=== PATIENT | male | born 1985 | race Caucasian/White ===

== ENCOUNTER 2024-05-24 22:08 | Emergency (ER) | payer OTHER, SELFPAY ==
[2024-05-24 22:19] VITALS: BP 142/89; PULSE 107; RESP 18; TEMP 37.2; O2SAT 99; BMI 19.3
--- NOTE | 2024-05-24 22:44 | PC.NURSE ---
Pt states some nausea at this time but does not want meds for it yet.
[2024-05-24 22:52] LABS: Add Manual Diff / Slide Review NO; Basophils Absolute Auto 0 /uL (0-100); Basophils Percent Auto 0.4 % (0-2); Eosinophils Absolute Auto 100 /uL (0-450); Eosinophils Percent Auto 1.1 % (2-4); Hematocrit 36.5 % (41-53); Hemoglobin 11.7 g/dL (13.5-17.5); Lymphocytes Absolute Auto 1700 /uL (1100-4500); Lymphocytes Percent Auto 14.1 % (25-40); Mean Corpuscular HGB Conc 32.1 % (30-36); Mean Corpuscular Hemoglobin 23.5 PG (26-34); Mean Corpuscular Volume 73.2 fL (80-100); Monocytes Absolute Auto 1500 /uL (0-900); Monocytes Percent Auto 12.9 % (3-14); Neutrophils Absolute Auto 8500 /uL (1500-7000); Neutrophils Percent Auto 71.5 % (50-75); Platelet Count 695 X10^3/uL (150-400); Red Blood Cell Count 4.99 X10^6/uL (4.5-5.9); Red Cell Distribution Width 17.3 % (11.6-14.8); White Blood Cell Count 11.8 X10^3/uL (4.5-11.0)
[2024-05-24 22:53] LABS: Alanine Aminotransferase 18 IU/L (<50); Albumin 3.7 g/dL (3.5-5.0); Alkaline Phosphatase 99 U/L (38-126); Aspartate Aminotransferase 25 IU/L (17-59); BUN Creatinine Ratio 11.6 (6-22); Bilirubin Total 0.6 mg/dL (0.2-1.3); Blood Urea Nitrogen 11 mg/dL (9-20); Calcium 9.2 mg/dL (8.4-10.2); Carbon Dioxide 24 mmol/L (22-32); Chloride 93 mmol/L (98-107); Estimated Glomerular Filt Rate > 60 mL/min (>60); Glucose 137 mg/dL (70-100); HEMOLYSIS < 15 (0-50); Lipase 40 U/L (23-300); Potassium 3.1 mmol/L (3.4-5.1); Sodium 130 mmol/L (137-145)
[2024-05-24 22:54] LABS: Albumin Globulin Ratio 0.8 (1.0-2.8); Globulin 4.4 g/dL (1.7-4.1); Total Protein 8.1 g/dL (6.3-8.2)
--- NOTE | 2024-05-24 23:04 | DI.CT.S_ITS ---
PROCEDURE: CT ABDOMEN PELVIS W CON INDICATIONS: abd pain, hx of crohns TECHNIQUE: After the administration of intravenous contrast, axial sections acquired from the lung bases to the pubic symphysis. Coronal and sagittal reformats were performed. For radiation dose reduction, the following was used: automated exposure control, adjustment of mA and/or kV according to patient size. COMPARISON: None. FINDINGS: Image quality: Diagnostic. Lower Chest: No significant findings. ABDOMEN: Liver: No solid mass. Subcentimeter hypoattenuating lesion in the right hepatic lobe is too small to characterize, but is likely a cyst. Gallbladder: No radiopaque gallstones or wall thickening. Biliary ducts: No biliary dilation. Pancreas: No ductal dilation. Spleen: Size is within normal limits. Adrenal Glands: No adrenal nodules. Kidneys and Ureters: No hydronephrosis. No solid mass. No complex renal cystic lesion which requires follow up. Stomach and Bowel: Marked bowel wall thickening in the transverse colon with pericolonic fat stranding. Less prominent bowel wall thickening is seen throughout the remainder of the colon. No signs of bowel perforation. No definite small bowel inflammatory changes. No signs of small bowel obstruction. Peritoneum: No abnormal intraperitoneal fluid. No free air. Ventral Wall: No significant ventral hernia. Abdominal Nodes: No retroperitoneal or mesenteric adenopathy by size criteria. Vessels: Aorta and inferior vena cava are normal in size. PELVIS: Pelvic Organs: Unremarkable. Bladder: No bladder wall thickening, accounting for underdistention. Pelvic Nodes: No enlarged lymph nodes. Miscellaneous: No inguinal hernias are seen. Bones: No aggressive osseous abnormality. Sacroiliac joints are intact. IMPRESSION: Severe bowel wall thickening in the transverse colon with surrounding fat stranding is suspicious for colitis. There is [id number] bowel wall thickening throughout the remainder of the colon and rectum. Approved by: Lamonte Medina M.D. on 05/25/2024 at 0:01
[2024-05-24] MEDS: ONDANSETRON 4 MG/2 ML INJ IV (23:10)
[2024-05-24] MEDS: KETOROLAC 30 MG/ML VIAL 15 MG IV (23:10)
[2024-05-24] MEDS: SODIUM CHLORIDE 0.9% 1,000 ML 1000 ML IV (23:10)
--- NOTE | 2024-05-24 23:16 | PC.NURSE ---
Pt taken to imaging via ED stretcher with system technologist
[2024-05-24 23:46] LABS: Lactate (Lactic Acid) 1.8 mmol/L (0.7-2.1); Magnesium 1.9 mg/dL (1.6-2.3)
[2024-05-25] VITALS (7 sets, daily range): BP systolic 99–114; BP diastolic 70–81; PULSE 78–98; RESP 18; O2SAT 95–99
--- NOTE | 2024-05-25 00:16 | ED.ABDPAIN ---
HPI - Abdominal Pain General Chief Complaint: Abdominal Pain Stated Complaint: Chron's flare-up Time Seen by Provider: 05/24/24 23:04 Source: patient Mode of arrival: Ambulatory History of Present Illness HPI narrative: 39-year-old male with a past medical history of Crohn's comes into the ED from home for evaluation of cramping abdominal pain diarrhea ongoing persistent for the past 3-4 weeks. States that he has not had a Crohn's flare-up in a proximally 5 years states his GI doctor was informed by the [place], states his symptoms are similar to when he has a history of GI flare-up, not currently on any medications for this. Denies any other symptoms such as headache visual disturbances chest pain shortness of breath fever chills or any other GI/ symptoms time. He denies any recent antibiotics denies any recent travel denies any known sick contacts Related Data Previous Rx's Medication Instructions Recorded prednisone 20 mg tablet 40 mg (2 x 20 mg) PO DAILY 2 weeks 05/25/24 #28 tabs Allergies Allergy/AdvReac Type Severity Reaction Status Date / Time No Known Drug Allergies Allergy Verified 05/24/24 22:21 Review of Systems Review of Systems Narrative: General: Denies fever, chills, weight loss HEENT: Denies headache, eye drainage, eye irritation, head trauma, sore throat, voice change Cardiovascular: Denies any chest pain, palpitations, shortness of breath, tachycardia Respiratory: Denies any shortness of breath, cough, wheeze, stridor GI/: Positive abdominal pain, bright red blood per rectum,denies nausea, vomiting, diarrhea, melanotic stools, urinary frequency, urinary retention, dysuria, hematuria MSK: Denies any joint pain, muscle pains, swelling Skin: Denies any rashes, lesions, discoloration Neuro: Denies any headache, lightheadedness, dizziness, fainting, weakness Psych: Denies SI/HI Patient History Social History Smoking Status: Current every day smoker Smoking Status: Current every day smoker Exam Narrative Exam Narrative: General: Cooperative, comfortable, well-developed, not in acute distress HEENT: Normocephalic, atraumatic, PERRLA, normal sclera, eyelids normal, Neck: Active full range of motion, atraumatic Chest: Normal to inspection, negative crepitus, no overlying erythema ecchymosis Respiratory: Normal respiratory effort, not in acute respiratory distress, clear to auscultation bilaterally negative cough, wheeze, tachypnea, rhonchi, rales Cardiology: Regular rate rhythm negative gallop, murmur, rubs GI/: Normal to inspection, soft, nonrigid, no tenderness to palpation, exam deferred MSK: Full range of active range of motion of all 4 extremities, atraumatic Skin: No rashes lesions noted Neuro: Alert awake oriented x3, moves all 4 extremities spontaneously, cranial nerves intact, able to answer all questions appropriately follows commands appropriately Psych: Cooperative, negative suicidal or homicidal ideations Initial Vital Signs Initial Vital Signs: Vital Signs Temperature 98.9 F 05/24/24 22:19 Pulse Rate 107 H 05/24/24 22:19 Respiratory Rate 18 05/24/24 22:19 Blood Pressure 142/89 H 05/24/24 22:19 Pulse Oximetry 99 05/24/24 22:19 Oxygen Delivery Method Room Air 05/24/24 22:19 Course Orders Ordered: ED Orders 05/24/24 22:23 Complete Blood Count AUTO DIFF Stat Comprehensive Metabolic Panel Stat Lactate (Lactic Acid) Stat Lipase Stat MAG [Magnesium] Stat 05/24/24 23:04 CT abdomen pelvis w con Stat 05/25/24 00:45 GI Panel (Film Array) Stat Ondansetron HCl (Ondansetron 4 Mg/2 Ml Inj) 4 mg IV NOW PRN PRN Reason: Nausea And Vomiting Last Admin: 05/24/24 23:10 Dose: 4 mg Documented By: GAYLE Ondansetron HCl (Ondansetron 4 Mg Odt) 4 mg PO NOW PRN PRN Reason: Nausea And Vomiting Discontinued Medications Sodium Chloride (Normal Saline 0.9%) 1,000 mls @ 1,000 mls/hr IV BOLUS ONE Stop: 05/25/24 00:03 Last Infusion: 05/25/24 00:16 Dose: Infused Documented By: Admin: 05/24/24 23:10 Dose: 1,000 mls/hr Documented By: GAYLE Ketorolac Tromethamine (Ketorolac 30 Mg/Ml Vial) 15 mg IV NOW ONE Stop: 05/24/24 23:05 Last Admin: 05/24/24 23:10 Dose: 15 mg Documented By: GAYLE Morphine Sulfate (Morphine 4 Mg/Ml Inj) 4 mg IV NOW ONE Stop: 05/25/24 00:31 Last Admin: 05/25/24 00:49 Dose: 4 mg Documented By: GAYLE Ondansetron HCl (Ondansetron 4 Mg/2 Ml Inj) 4 mg IV NOW ONE Stop: 05/25/24 00:31 Last Admin: 05/25/24 00:49 Dose: 4 mg Documented By: GAYLE Prednisone (Prednisone 20 Mg Tablet) 40 mg PO NOW ONE Stop: 05/25/24 02:37 Vital Signs Vital signs: Vital Signs - 8 hr 05/24/24 22:19 05/25/24 00:18 05/25/24 00:30 Temperature 98.9 F Pulse Rate 107 H 91 H 98 H Respiratory Rate 18 Blood Pressure 142/89 H Pulse Oximetry 99 99 99 Oxygen Delivery Method Room Air 05/25/24 00:30 05/25/24 00:52 05/25/24 00:52 Temperature Pulse Rate 91 H Respiratory Rate 18 Blood Pressure 112/81 105/77 Pulse Oximetry 98 Oxygen Delivery Method Room Air MDM - Abdominal Pain Differential Diagnosis Differential diagnosis: Likely abdominal pain, diverticulitis, small bowel obstruction and other (Crohn's flare-up, C diff) Lab Data 05/24/24 22:23 05/24/24 22:23 Labs: Lab Results 05/24/24 05/25/24 Range/Units 22:23 00:45 WBC 11.8 H (4.5-11.0) X10^3/uL RBC 4.99 (4.5-5.9) X10^6/uL Hgb 11.7 L (13.5-17.5) g/dL Hct 36.5 L (41-53) % MCV 73.2 L (80-100) fL MCH 23.5 L (26-34) PG MCHC 32.1 (30-36) % RDW 17.3 H (11.6-14.8) % Plt Count 695 H (150-400) X10^3/uL Neut % (Auto) 71.5 (50-75) % Lymph % (Auto) 14.1 L (25-40) % Leon % (Auto) 12.9 (3-14) % Eos % (Auto) 1.1 L (2-4) % Baso % (Auto) 0.4 (0-2) % Neut # (Auto) 8500 H (6599-3566) /uL Lymph # (Auto) 1700 (7567-1138) /uL Leon # (Auto) 1500 H (0-900) /uL Eos # (Auto) 100 (0-450) /uL Baso # (Auto) 0 (0-100) /uL Sodium 130 L (137-145) mmol/L Potassium 3.1 L (3.4-5.1) mmol/L Chloride 93 L (98-107) mmol/L Carbon Dioxide 24 (22-32) mmol/L BUN 11 (9-20) mg/dL Creatinine 0.95 (0.66-1.25) mg/dL Estimated GFR > 60 (>60) mL/min BUN/Creatinine Ratio 11.6 (6-22) Glucose 137 H (70-100) mg/dL Lactate 1.8 (0.7-2.1) mmol/L Calcium 9.2 (8.4-10.2) mg/dL Magnesium 1.9 (1.6-2.3) mg/dL Total Bilirubin 0.6 (0.2-1.3) mg/dL AST 25 (17-59) IU/L ALT 18 (<50) IU/L Alkaline Phosphatase 99 (38-126) U/L Total Protein 8.1 (6.3-8.2) g/dL Albumin 3.7 (3.5-5.0) g/dL Globulin 4.4 H (1.7-4.1) g/dL Albumin/Globulin Ratio 0.8 L (1.0-2.8) Lipase 40 (23-300) U/L Stl C. cayetanensis PCR Not detected (Not Detect) Stool Rotavirus (PCR) Not detected (Not Detect) Stool Adenovirus (PCR) Not detected (Not Detect) Stool Astrovirus (PCR) Not detected (Not Detect) Stool Cryptosporidium PCR Not detected (Not Detect) Stl E.coli Shiga Tox PCR Not detected (Not Detect) St Sh/Enteroin Ecoli PCR Not detected (Not Detect) Stl Enterotoxigenic E PCR Not detected (Not Detect) Stool EPEC (PCR) Detected (Not Detect) Stl E. histolytica PCR Not detected (Not Detect) Stool Giardia Lamblia PCR Not detected (Not Detect) Stool Sapovirus (PCR) Not detected (Not Detect) Stl P. shigelloides PCR Not detected (Not Detect) St Y.enterocolitica PCR Not detected (Not Detect) Stool Vibrio (PCR) Not detected (Not Detect) Stl Vibrio cholerae PCR Not detected (Not Detect) Stl Enteroaggr Ecoli PCR Not detected (Not Detect) Stl Norovirus GI/GII PCR Not detected (Not Detect) Campylobacter (PCR) Not detected (Not Detect) C. difficile Tox (PCR) Not detected (Not Detect) Salmonella (PCR) Not detected (Not Detect) Point of care testing: Urine Dip Bedside Urine Glucose Negative Bedside Urine Bilirubin + 1 Bedside Urine Ketone - Negative Urine Specific [place] 1.020 Bedside Urine Occult Blood - Negative Bedside Urine pH 6.0 Bedside Urine Protein +/- 15 Bedside Urine Urobilinogen - Negative Bedside Urine Nitrite - Negative Bedside Urine Leukocytes - Negative Esterase Imaging Data CT scan - abdomen/pelvis: Radiologist's Impression: [address] [address] [address] Scan Report Signed Patient: Josemanuel Levine MR#: [id number] : 1985 Acct:[id number] Age/Sex: 39 / M Date of Service: 05/24/24 Loc: ED Accession Number: [id number] Procedure: CT abdomen pelvis w con Ordering Provider: Medhat Cantu D.O. PROCEDURE: CT ABDOMEN PELVIS W CON INDICATIONS: abd pain, hx of crohns TECHNIQUE: After the administration of intravenous contrast, axial sections acquired from the lung bases to the pubic symphysis. Coronal and sagittal reformats were performed. For radiation dose reduction, the following was used: automated exposure control, adjustment of mA and/or kV according to patient size. COMPARISON: None. FINDINGS: Image quality: Diagnostic. Lower Chest: No significant findings. ABDOMEN: Liver: No solid mass. Subcentimeter hypoattenuating lesion in the right hepatic lobe is too small to characterize, but is likely a cyst. Gallbladder: No radiopaque gallstones or wall thickening. Biliary ducts: No biliary dilation. Pancreas: No ductal dilation. Spleen: Size is within normal limits. Adrenal Glands: No adrenal nodules. Kidneys and Ureters: No hydronephrosis. No solid mass. No complex renal cystic lesion which requires follow up. Stomach and Bowel: Marked bowel wall thickening in the transverse colon with pericolonic fat stranding. Less prominent bowel wall thickening is seen throughout the remainder of the colon. No signs of bowel perforation. No definite small bowel inflammatory changes. No signs of small bowel obstruction. Peritoneum: No abnormal intraperitoneal fluid. No free air. Ventral Wall: No significant ventral hernia. Abdominal Nodes: No retroperitoneal or mesenteric adenopathy by size criteria. Vessels: Aorta and inferior vena cava are normal in size. PELVIS: Pelvic Organs: Unremarkable. Bladder: No bladder wall thickening, accounting for underdistention. Pelvic Nodes: No enlarged lymph nodes. Miscellaneous: No inguinal hernias are seen. Bones: No aggressive osseous abnormality. Sacroiliac joints are intact. IMPRESSION: Severe bowel wall thickening in the transverse colon with surrounding fat stranding is suspicious for colitis. There is [id number] bowel wall thickening throughout the remainder of the colon and rectum. MDM Narrative Medical decision making narrative: 39-year-old male with a history of Crohn's comes in for Crohn's flare-up consistent of abdominal cramping intermittent nausea and intermittent bloody diarrhea. No recent antibiotic use states last GI doctor was 5 years ago in [place] has moved up here recently. Patient with mild leukocytosis of 11.8, potassium 3.1, remainder lab work unremarkable, CT scan showing diffuse colitis no abscess or fistula. GI panel only showing positive enteropathogenic E coli no C diff therefore patient will be sent home 1st dose of prednisone as well as a prescription for daily 40 mg prednisone and follow up with GI. He was given strict return precautions verbalized understanding of this and agrees to being discharged home with outpatient follow up 0029: Discussed case with medical genetics director Dr. Boswell, who recommends patient to have stool studies to rule out C diff, if this is negative he would recommend 40 mg prednisone daily until he is able to follow up in clinic 0235: Patient was informed of his GI panel results, informed he will be started on prednisone should be taking this daily until he follows up a GI doctor. He was also instructed follow up with primary care in outpatient setting he verbalized understanding of this and agrees to being discharged home with outpatient follow up Discharge Plan Departure Patient Disposition: Home Clinical Impression: Crohn's colitis Instructions: DI for Crohns Disease Flare Activity Restrictions/Additional Instructions: Please follow up with GI for your Crohn's disease as well as primary care Please read the discharge instructions sheet carefully and bring all papers to all doctor follow-up visits, as it may contain information that your doctor may want to see. Disease processes change and evolve, if your symptoms worsen or if you develop any new symptoms that are concerning to you please return for evaluation. Your evaluation today does not show any evidence of any life-threatening/serious illnesses requiring admission to the hospital or surgery. Please follow-up with your doctor for re-evaluation in approximately 1 day. Seek immediate medical attention for any worrisome symptoms. *If you do not have a primary care provider please contact the [facility] Resource line at [phone]. They will ask some questions about your medical history and help get you set up with a doctor in the community. Prescriptions: New prednisone 20 mg tablet 40 mg PO DAILY 14 Days Qty: 28 0RF Referrals: Sabina Boswell MD [Non-Staff] - 3-5 days Stand Alone Forms: Patient Portal/API/Survey
[2024-05-25] MEDS: ONDANSETRON 4 MG/2 ML INJ IV (00:49)
[2024-05-25] MEDS: MORPHINE 4 MG/ML INJ IV (00:49)
[2024-05-25 02:09] LABS: Adenovirus F 40/41 Not Detected (Not Detect); Astrovirus Not Detected (Not Detect); Campylobacter Not Detected (Not Detect); Clostridium difficile toxin AB Not Detected (Not Detect); Cryptosporidium Not Detected (Not Detect); Cyclospora cayetanensis Not Detected (Not Detect); Entamoeba histolytica Not Detected (Not Detect); Enteroaggregative E.coli Not Detected (Not Detect); Enteropathogenic E.coli Detected (Not Detect); Enterotoxigenic E.coli It/st Not Detected (Not Detect); Giardia lamblia Not Detected (Not Detect); Norovirus GI/GII Not Detected (Not Detect); Plesiomonsa shigelloides Not Detected (Not Detect); Rotavirus A Not Detected (Not Detect); Salmonella Not Detected (Not Detect); Sapovirus Not Detected (Not Detect); Shiga-like toxin-prod E.coli Not Detected (Not Detect); Shigella/Enteroinvasive E.coli Not Detected (Not Detect); Vibrio Not Detected (Not Detect); Vibrio cholerae Not Detected (Not Detect); Yersinia enterocolitica Not Detected (Not Detect)
[2024-05-25] MEDS: predniSONE 20 MG TABLET 40 MG PO (02:40)
== END 2024-05-25 02:46 | disposition home or self-care (01) ==
PROVIDERS: Emergency Provider Student in an Organized Health Care Education/Training Program
DX: K50.10 Crohn's disease of large intestine without complications (principal)
CPT/HCPCS: 36415; 74177; 80053; 81003; 83605; 83690; 83735; 85025; 87507; 96361; 96374; 96375; 96376; 99284; 99285; J1885; J2270; J2405; Q9967

== ENCOUNTER 2024-08-30 16:50 | Emergency (ER) | payer OTHER, SELFPAY ==
[2024-08-30] VITALS (12 sets, daily range): BP systolic 111–117; BP diastolic 76–81; PULSE 83–113; RESP 13–30; TEMP 36.5; O2SAT 77–99; BMI 17.2
--- NOTE | 2024-08-30 17:15 | EKG_ITS ---
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
--- NOTE | 2024-08-30 17:35 | EKG_ITS ---
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
[2024-08-30 17:52] LABS: Add Manual Diff / Slide Review NO; Basophils Absolute Auto 0 /uL (0-100); Basophils Percent Auto 0.8 % (0-2); Eosinophils Absolute Auto 0 /uL (0-450); Eosinophils Percent Auto 0.4 % (2-4); Hematocrit 31.2 % (41-53); Hemoglobin 10.1 g/dL (13.5-17.5); Lymphocytes Absolute Auto 1100 /uL (1100-4500); Lymphocytes Percent Auto 18.2 % (25-40); Mean Corpuscular HGB Conc 32.3 % (30-36); Mean Corpuscular Hemoglobin 23.6 PG (26-34); Mean Corpuscular Volume 73.1 fL (80-100); Monocytes Absolute Auto 600 /uL (0-900); Monocytes Percent Auto 10.3 % (3-14); Neutrophils Absolute Auto 4200 /uL (1500-7000); Neutrophils Percent Auto 70.3 % (50-75); Platelet Count 735 X10^3/uL (150-400); Red Blood Cell Count 4.27 X10^6/uL (4.5-5.9); Red Cell Distribution Width 19.8 % (11.6-14.8); White Blood Cell Count 5.9 X10^3/uL (4.5-11.0)
[2024-08-30 17:53] LABS: Alanine Aminotransferase 14 IU/L (<50); Albumin 2.8 g/dL (3.5-5.0); Albumin Globulin Ratio 0.6 (1.0-2.8); Alkaline Phosphatase 169 U/L (38-126); Aspartate Aminotransferase 23 IU/L (17-59); BUN Creatinine Ratio 15.9 (6-22); Bilirubin Total 0.8 mg/dL (0.2-1.3); Blood Urea Nitrogen 11 mg/dL (9-20); Calcium 8.1 mg/dL (8.4-10.2); Carbon Dioxide 32 mmol/L (22-32); Chloride 92 mmol/L (98-107); Estimated Glomerular Filt Rate > 60 mL/min (>60); Globulin 4.4 g/dL (1.7-4.1); Glucose 105 mg/dL (70-99); HEMOLYSIS < 15 (0-50); Lipase 63 U/L (23-300); Sodium 130 mmol/L (137-145); Total Protein 7.2 g/dL (6.3-8.2)
[2024-08-30 17:59] LABS: Potassium 2.3 mmol/L (3.4-5.1)
--- NOTE | 2024-08-30 18:07 | ED_ITS ---
HPI - Abdominal Pain General Chief Complaint: Abdominal Pain Stated Complaint: Chrones flare up Time Seen by Provider: 08/30/24 18:07 History of Present Illness HPI narrative: 39-year-old gentleman history of Crohn's disease not currently on any medication regimen presents with diffuse abdominal pain for 5-6 days along with nausea but has baseline liquid stools daily. He denies fever, chills, back pain, testicular pain, penile discharge or UTI symptoms. He has not taken anything for this and nothing makes it better or worse. Other than what is stated 14 point review of system is negative. Related Data Previous Rx's Medication Instructions Recorded potassium chloride 20 mEq 40 meq (2 x 20 mEq) PO DAILY 5 08/31/24 tablet,extended release days #10 tabs Allergies Allergy/AdvReac Type Severity Reaction Status Date / Time No Known Drug Allergies Allergy Verified 08/30/24 17:05 Review of Systems Review of Systems ROS Unobtainable: All systems reviewed & are unremarkable except as noted in HPI and below Patient History Social History Smoking Status: Current every day smoker Smoking Status: Current every day smoker tobacco type: cigarettes Exam Narrative Exam Narrative: GENERAL: [39] year old patient appears stated age. Well-developed patient, in mild distress. HEAD: Atraumatic. Normocephalic. EYES: Pupils equal round and reactive. Extraocular motions intact. No scleral icterus. No injection or drainage. NECK: Trachea midline. Non tender CARDIOVASCULAR: Regular rate and rhythm without murmurs, gallops, or rubs. RESPIRATORY: Clear to auscultation. Breath sounds equal bilaterally. No wheezes, rales, or rhonchi. GASTROINTESTINAL: Abdomen soft, Epigastric TTP but no r/r/g EXTREMITIES: No edema or joint tenderness. BACK: Nontender without deformity or crepitance. No flank tenderness. NEURO: AOx3. SKIN: No rash or erythema of visible areas Initial Vital Signs Initial Vital Signs: Vital Signs Temperature 97.7 F 08/30/24 17:05 Pulse Rate 113 H 08/30/24 17:05 Respiratory Rate 16 08/30/24 17:05 Blood Pressure 114/76 08/30/24 17:05 Pulse Oximetry 99 08/30/24 17:05 Oxygen Delivery Method Room Air 08/30/24 17:05 Course Orders Ordered: ED Orders 08/30/24 17:15 EKG-12 Lead Stat 08/30/24 17:25 Complete Blood Count AUTO DIFF Stat Comprehensive Metabolic Panel Stat Lipase Stat MAG [Magnesium] Stat 08/30/24 17:35 EKG-12 Lead Routine 08/30/24 20:56 Ictotest Urine Stat 08/30/24 21:50 CT abdomen pelvis w con Stat Sodium Chloride (Normal Saline 0.9%) 1,000 mls @ 125 mls/hr IV CONT CLAUDIA Last Infusion: 08/30/24 23:21 Dose: 0 mls/hr Documented By: Admin: 08/30/24 18:31 Dose: 125 mls/hr Documented By: Ondansetron HCl (Ondansetron 4 Mg/2 Ml Inj) 4 mg IV NOW PRN PRN Reason: Nausea And Vomiting Ondansetron HCl (Ondansetron 4 Mg Odt) 4 mg PO NOW PRN PRN Reason: Nausea And Vomiting Discontinued Medications Droperidol (Droperidol 2.5 Mg/Ml Vial) 2.5 mg IV NOW ONE Stop: 08/30/24 21:51 Last Admin: 08/30/24 21:57 Dose: 2.5 mg Documented By: POTASSIUM CHLORIDE IN WATER (Potassium Cl 10 Meq/100 Ml Jocelyn) 10 meq in 100 mls @ 100 mls/hr IV Q1H [facility] Stop: 08/30/24 20:29 Last Infusion: 08/30/24 20:47 Dose: Infused Documented By: Admin: 08/30/24 19:37 Dose: 100 mls/hr Documented By: Infusion: 08/30/24 19:31 Dose: Infused Documented By: Admin: 08/30/24 18:31 Dose: 100 mls/hr Documented By: Potassium Chloride (Potassium Chloride 20 Meq/15 Ml Udc) 40 meq PO NOW ONE Stop: 08/30/24 18:25 Last Admin: 08/30/24 18:30 Dose: 40 meq Documented By: Vital Signs Vital signs: Vital Signs - 8 hr 08/30/24 17:05 08/30/24 17:39 08/30/24 18:00 Temperature 97.7 F Pulse Rate 113 H 96 H Respiratory Rate 16 Blood Pressure 114/76 116/81 Pulse Oximetry 99 99 Oxygen Delivery Method Room Air 08/30/24 18:00 08/30/24 18:30 08/30/24 18:30 Temperature Pulse Rate 83 84 Respiratory Rate 13 16 Blood Pressure 113/81 Pulse Oximetry 99 97 Oxygen Delivery Method Room Air 08/30/24 19:00 08/30/24 19:00 08/30/24 19:30 Temperature Pulse Rate 93 H 89 Respiratory Rate 16 14 Blood Pressure 115/76 Pulse Oximetry 98 97 Oxygen Delivery Method 08/30/24 19:30 08/30/24 20:00 08/30/24 20:00 Temperature Pulse Rate 85 Respiratory Rate 19 Blood Pressure 116/81 113/79 Pulse Oximetry 98 Oxygen Delivery Method 08/30/24 20:30 08/30/24 20:30 08/30/24 21:00 Temperature Pulse Rate 92 H 92 H Respiratory Rate 20 19 Blood Pressure 111/79 Pulse Oximetry 95 98 Oxygen Delivery Method 08/30/24 21:00 08/30/24 21:30 08/30/24 21:30 Temperature Pulse Rate 91 H Respiratory Rate 19 Blood Pressure 114/79 117/79 Pulse Oximetry 96 Oxygen Delivery Method 08/30/24 22:08 08/30/24 22:31 Temperature Pulse Rate 106 H 104 H Respiratory Rate 30 H 20 Blood Pressure Pulse Oximetry 77 L 97 Oxygen Delivery Method MDM - Abdominal Pain Lab Data 08/30/24 17:25 08/30/24 17:25 Labs: Lab Results 08/30/24 08/30/24 Range/Units 17:25 20:56 WBC 5.9 (4.5-11.0) X10^3/uL RBC 4.27 L (4.5-5.9) X10^6/uL Hgb 10.1 L (13.5-17.5) g/dL Hct 31.2 L (41-53) % MCV 73.1 L (80-100) fL MCH 23.6 L (26-34) PG MCHC 32.3 (30-36) % RDW 19.8 H (11.6-14.8) % Plt Count 735 H (150-400) X10^3/uL Neut % (Auto) 70.3 (50-75) % Lymph % (Auto) 18.2 L (25-40) % [place] % (Auto) 10.3 (3-14) % Eos % (Auto) 0.4 L (2-4) % Baso % (Auto) 0.8 (0-2) % Neut # (Auto) 4200 (3404-3317) /uL Lymph # (Auto) 1100 (9875-7283) /uL [place] # (Auto) 600 (0-900) /uL Eos # (Auto) 0 (0-450) /uL Baso # (Auto) 0 (0-100) /uL Sodium 130 L (137-145) mmol/L Potassium 2.3 L* (3.4-5.1) mmol/L Chloride 92 L (98-107) mmol/L Carbon Dioxide 32 (22-32) mmol/L BUN 11 (9-20) mg/dL Creatinine 0.69 (0.66-1.25) mg/dL Estimated GFR > 60 (>60) mL/min BUN/Creatinine Ratio 15.9 (6-22) Glucose 105 H (70-99) mg/dL Calcium 8.1 L (8.4-10.2) mg/dL Magnesium 2.0 (1.6-2.3) mg/dL Total Bilirubin 0.8 (0.2-1.3) mg/dL AST 23 (17-59) IU/L ALT 14 (<50) IU/L Alkaline Phosphatase 169 H (38-126) U/L Total Protein 7.2 (6.3-8.2) g/dL Albumin 2.8 L (3.5-5.0) g/dL Globulin 4.4 H (1.7-4.1) g/dL Albumin/Globulin Ratio 0.6 L (1.0-2.8) Lipase 63 (23-300) U/L Ur Bilirubin Confirm Negative (Negative) Point of care testing: Urine Dip Bedside Urine Glucose Negative Bedside Urine Bilirubin + 1 Bedside Urine Ketone - Negative Urine Specific [place] 1.010 Bedside Urine Occult Blood - Negative Bedside Urine pH 7.5 Bedside Urine Protein +/- 15 Bedside Urine Urobilinogen 1+ 2mg Bedside Urine Nitrite - Negative Bedside Urine Leukocytes - Negative Esterase MDM Narrative Medical decision making narrative: All lab work, vital signs, nurse triage note, medication list, previous ER visits and CT scan all reviewed. CT scan shows significant distal gastric wall thickening and proximal small bowel wall thickening marked colonic wall thickening findings likely represent manifestations of Crohn's disease. small amount of abdominal free fluid no peritoneal free air and no abscess collection. no white count hemoglobin was normal. Sodium was 130 and potassium was 2.3 patient was given potassium chloride 40 mEq and also K rider here. Patient will be discharged on potassium pills and prednisone for the next few days. Differential diagnosis includes pancreatitis, diverticulitis, Crohn's disease, and ulcerative colitis Discharge Plan Departure Patient Disposition: Home Clinical Impression: Hypokalemia Crohn disease Qualifiers: Gastrointestinal tract location: small intestine Digestive disease complication type: without complication Qualified Code(s): K50.00 - Crohn's disease of small intestine without complications Instructions: DI for Crohns Disease Flare Activity Restrictions/Additional Instructions: Return with new or worsening symptoms. Take your medicines as directed. Follow up with PCP to get established in the next 1-2 weeks Prescriptions: New potassium chloride 20 mEq tablet extended release 40 meq PO DAILY 5 Days Qty: 10 0RF Referrals: Miscellaneous,DoctorMD [Primary Care Provider] - Stand Alone Forms: Patient Portal/API/Survey
[2024-08-30] MEDS: POTASSIUM CHLORIDE 20 MEQ/15 ML UDC 40 MEQ PO (18:30)
[2024-08-30] MEDS: SODIUM CHLORIDE 0.9% 1,000 ML 125 ML IV (18:31)
[2024-08-30] MEDS: POTASSIUM CHLORIDE IN WATER 10 MEQ/100 ML PIGGYBACK 100 MEQ IV ×2 (18:31→19:37)
--- NOTE | 2024-08-30 19:40 | PC.NURSE ---
Pt wants something for pain, MD notified.
[2024-08-30 21:24] LABS: Ictotest Urine Negative (Negative)
--- NOTE | 2024-08-30 21:50 | DI.CT.S_ITS ---
PROCEDURE: CT ABDOMEN PELVIS W CON INDICATIONS: abd pain / hx of crohns disease TECHNIQUE: After the administration of intravenous contrast, axial sections acquired from the lung bases to the pubic symphysis. Coronal and sagittal reformats were performed. For radiation dose reduction, the following was used: automated exposure control, adjustment of mA and/or kV according to patient size. COMPARISON: [facility], CT, CT ABDOMEN PELVIS W CON, 05/24/2024, 23:09. FINDINGS: Image quality: Diagnostic. Lower Chest: No significant findings. ABDOMEN: Liver: No solid mass. Gallbladder: No radiopaque gallstones or wall thickening. Biliary ducts: No biliary dilation. Pancreas: No ductal dilation. Spleen: Size is within normal limits. Adrenal Glands: No adrenal nodules. Kidneys and Ureters: No hydronephrosis. No solid mass. No complex renal cystic lesion which requires follow up. Stomach and Bowel: There is significant distal gastric wall thickening and wall thickening involving proximal to mid duodenum. Extensive colonic wall thickening throughout abdomen is seen most notably involving ascending colon and hepatic flexure with marked narrowing of the lumen. No abscess collection. Peritoneum: Small amount of perihepatic fluid is seen. No free air. Ventral Wall: No significant ventral hernia. Abdominal Nodes: No retroperitoneal or mesenteric adenopathy by size criteria. Vessels: Aorta and inferior vena cava are normal in size. PELVIS: Pelvic Organs: Unremarkable. Bladder: No bladder wall thickening, accounting for underdistention. Pelvic Nodes: No enlarged lymph nodes. Miscellaneous: No inguinal hernias are seen. Bones: No aggressive osseous abnormality. IMPRESSION: 1. Significant distal gastric wall thickening and proximal small bowel wall thickening. Marked colonic wall thickening. Finding likely represent manifestation of Crohn's disease given patient's history. 2. Small amount of abdominal free fluid. No peritoneal free air. No abscess collection. 3. Other chronic findings as above. Dictated by: Norm Burgos M.D. on 08/30/2024 at 22:34 Approved by: Norm Burgos M.D. on 08/30/2024 at 22:36
[2024-08-30] MEDS: droPERidol 2.5 MG/ML VIAL IV (21:57)
[2024-08-31] MEDS: methylPREDNISolone 125 MG/2 ML VIAL IV (00:29)
[2024-08-31 00:42] VITALS: BP 106/66; PULSE 96; RESP 16; O2SAT 94
== END 2024-08-31 00:44 | disposition home or self-care (01) ==
PROVIDERS: Emergency Medicine; Emergency Provider Family Medicine
DX: K50.00 Crohn's disease of small intestine without complications (principal); E87.6 Hypokalemia
CPT/HCPCS: 36415; 74177; 80053; 81003; 83690; 83735; 85025; 93005; 96365; 96366; 96375; 99284; J1790; J2919; Q9967

== ENCOUNTER 2024-09-11 22:02 | Emergency (ER) | payer OTHER, SELFPAY ==
--- NOTE | 2024-09-11 22:09 | ED.NAVMDI ---
HPI - Nausea/Vomiting/Diarrhea General Chief complaint: Abdominal Pain Stated complaint: nausea throwing up has chrones Time Seen by Provider: 09/11/24 22:08 History of Present Illness HPI Narrative: 39-year-old male with a past medical history of Crohn's not on any medical regimen at this time presents to the emergency department from home for evaluation of persistent abdominal pain nausea and vomiting. He states that he is currently on a wait list to see a GI doctor, states that he has been having this flare-up for approximately a month, states that the pain is the same as when he was seen here previously, however at bedside states that she has concerns that patient ?threw up fecal matter. Patient not complaining of any other symptoms at this time no headache visual disturbances chest pain shortness of breath fever chills or any other GI/ symptoms at this time. Related Data Allergies Allergy/AdvReac Type Severity Reaction Status Date / Time No Known Drug Allergies Allergy Verified 09/11/24 22:16 Review of Systems Review of Systems Narrative: General: Denies fever, chills, weight loss HEENT: Denies headache, eye drainage, eye irritation, head trauma, sore throat, voice change Cardiovascular: Denies any chest pain, palpitations, tachycardia Respiratory: Denies any shortness of breath, cough, wheeze, stridor GI/: Positive abdominal pain, nausea, vomiting, denies diarrhea, bright red blood per rectum, melanotic stools, urinary frequency, urinary retention, dysuria, hematuria MSK: Denies any joint pain, muscle pains, swelling Skin: Denies any rashes, lesions, discoloration Neuro: Denies any headache, lightheadedness, dizziness, fainting, weakness Psych: Denies SI/HI Patient History tobacco type: cigarettes Exam Narrative Exam Narrative: General: Cooperative, well-developed, not in acute distress HEENT: Normocephalic, atraumatic, PERRLA, normal sclera, eyelids normal Neck: Active full range of motion, atraumatic Chest: Normal to inspection, negative crepitus, no overlying erythema ecchymosis Respiratory: Normal respiratory effort, not in acute respiratory distress, clear to auscultation bilaterally negative cough, wheeze, tachypnea, rhonchi, rales Cardiology: Regular rate rhythm negative gallop, murmur, rubs GI/: My tenderness to palpation of diffuse abdomen, soft, non rigid, normal to inspection, exam deferred MSK: Full active range of motion in all 4 extremities, atraumatic, no tenderness to palpation of any bony prominences Skin: No rashes or lesions noted Neuro: Alert awake oriented x3, moves all 4 extremities spontaneously, cranial nerves intact, able to answer all questions appropriately follows commands appropriately Psych: Cooperative, negative suicidal or homicidal ideations Initial Vital Signs Initial Vital Signs: Vital Signs Pulse Rate 137 H 09/11/24 22:11 Pulse Oximetry 97 09/11/24 22:11 Oxygen Delivery Method Room Air 09/11/24 22:11 Course Orders Ordered: ED Orders 09/11/24 22:13 CT abdomen pelvis w con Stat 09/11/24 22:18 CBC Auto Diff [Complete Blood Count AUTO DIFF] Stat CMP [Comprehensive Metabolic Panel] Stat Lipase Stat MAG [Magnesium] Stat 09/11/24 22:43 EKG-12 Lead Stat Discontinued Medications Sodium Chloride (Normal Saline 0.9%) 1,000 mls @ 1,000 mls/hr IV BOLUS ONE Stop: 09/11/24 23:09 Last Admin: 09/11/24 22:21 Dose: 1,000 mls/hr Documented By: GAYLE POTASSIUM CHLORIDE IN WATER (Potassium Cl 10 Meq/100 Ml Jocelyn) 10 meq in 100 mls @ 100 mls/hr IV Q1H CLAUDIA Stop: 09/12/24 00:44 Last Infusion: 09/12/24 01:26 Dose: Infused Magnesium Sulfate (Magnesium Sulfate) 2 gm in 50 mls @ 150 mls/hr IV NOW ONE Stop: 09/11/24 23:03 Last Infusion: 09/11/24 23:10 Dose: Infused Methylprednisolone (Methylprednisolone 125 Mg/2 Ml Vial) 125 mg IV NOW ONE Stop: 09/11/24 22:11 Last Admin: 09/11/24 22:21 Dose: 125 mg Documented By: GAYLE Morphine Sulfate (Morphine 4 Mg/Ml Inj) 4 mg IV NOW ONE Stop: 09/11/24 22:15 Last Admin: 09/11/24 22:22 Dose: 4 mg Documented By: GAYLE Ondansetron HCl (Ondansetron 4 Mg/2 Ml Inj) 4 mg IV NOW ONE Stop: 09/11/24 22:11 Last Admin: 09/11/24 22:21 Dose: 4 mg Documented By: LS Vital Signs Vital signs: Vital Signs - 8 hr 09/11/24 22:11 09/11/24 22:13 09/11/24 22:13 Temperature 99.6 F Pulse Rate 137 H 136 H 123 H Respiratory Rate 18 Blood Pressure 113/68 Pulse Oximetry 97 98 97 Oxygen Delivery Method Room Air Room Air Room Air 09/11/24 22:13 09/11/24 22:35 09/11/24 22:38 Temperature Pulse Rate 109 H 101 H Respiratory Rate 16 17 Blood Pressure 113/68 Pulse Oximetry 92 94 Oxygen Delivery Method Room Air Room Air 09/11/24 22:38 09/11/24 23:00 09/11/24 23:00 Temperature Pulse Rate 91 H Respiratory Rate 19 Blood Pressure 103/69 101/66 Pulse Oximetry 94 Oxygen Delivery Method Room Air 09/11/24 23:30 09/11/24 23:30 09/12/24 00:00 Temperature Pulse Rate 93 H Respiratory Rate 19 Blood Pressure 96/68 103/72 Pulse Oximetry 95 Oxygen Delivery Method Room Air 09/12/24 00:00 09/12/24 00:13 09/12/24 00:13 Temperature Pulse Rate 94 H 95 H Respiratory Rate 14 20 Blood Pressure 99/68 Pulse Oximetry 94 96 Oxygen Delivery Method Room Air Room Air MDM - Nausea/Vomiting/Diarrhea Differential Diagnosis Differential diagnosis: Likely gastroenteritis, dehydration and other (Crohn's, colitis, electrolyte abnormality) Lab Data 09/11/24 22:18 09/11/24 22:18 Labs: Lab Results 09/11/24 Range/Units 22:18 WBC 5.9 (4.5-11.0) X10^3/uL RBC 3.59 L (4.5-5.9) X10^6/uL Hgb 8.8 L (13.5-17.5) g/dL Hct 26.4 L (41-53) % MCV 73.6 L (80-100) fL MCH 24.6 L (26-34) PG MCHC 33.4 (30-36) % RDW 22.3 H (11.6-14.8) % Plt Count 493 H (150-400) X10^3/uL Neut % (Auto) 74.9 (50-75) % Lymph % (Auto) 15.9 L (25-40) % [place] % (Auto) 8.7 (3-14) % Eos % (Auto) 0.3 L (2-4) % Baso % (Auto) 0.2 (0-2) % Neut # (Auto) 4400 (8371-7140) /uL Lymph # (Auto) 900 L (9562-0765) /uL [place] # (Auto) 500 (0-900) /uL Eos # (Auto) 0 (0-450) /uL Baso # (Auto) 0 (0-100) /uL RBC Morphology See below Hypochromasia 1+ H Anisocytosis 2+ H Microcytosis 1+ H Sodium 125 L (137-145) mmol/L Potassium 2.5 L* (3.4-5.1) mmol/L Chloride 87 L (98-107) mmol/L Carbon Dioxide 34 H (22-32) mmol/L BUN 12 (9-20) mg/dL Creatinine 0.79 (0.66-1.25) mg/dL Estimated GFR > 60 (>60) mL/min BUN/Creatinine Ratio 15.2 (6-22) Glucose 97 (70-99) mg/dL Calcium 7.4 L (8.4-10.2) mg/dL Magnesium 1.8 (1.6-2.3) mg/dL Total Bilirubin 0.7 (0.2-1.3) mg/dL AST 30 (17-59) IU/L ALT 17 (<50) IU/L Alkaline Phosphatase 131 H (38-126) U/L Total Protein 5.7 L (6.3-8.2) g/dL Albumin 2.1 L (3.5-5.0) g/dL Globulin 3.6 (1.7-4.1) g/dL Albumin/Globulin Ratio 0.6 L (1.0-2.8) Lipase 23 (23-300) U/L Urine Dip Bedside Urine Glucose Negative Bedside Urine Bilirubin - Negative Bedside Urine Ketone - Negative Urine Specific [place] 1.000 Bedside Urine Occult Blood - Negative Bedside Urine pH 6.0 Bedside Urine Protein - Negative Bedside Urine Urobilinogen - Negative Bedside Urine Nitrite - Negative Bedside Urine Leukocytes - Negative Esterase ECG Data Interpretation: EKG interpreted ED physician sinus 92 beats per minute QTC [address] changes no STEMI MDM Narrative Medical decision making narrative: 39-year-old male history of Crohn's not on any maintenance medication presents for abdominal pain nausea vomiting, states he has been in a Crohn flare-up for the past month, states that he has an appointment in 1 month with GI, however states that he is currently on a wait list as well. States that he was here few days ago for the same but symptoms have not improved. at bedside states that she is concerned that patient threw up ?fecal matter and is therefore concerned that something has changed. At time of evaluation patient only complaining of nausea vomiting abdominal pain consistent with history of Crohn's, he denies any other symptoms at this time. Review of records shows that patient was seen here on 08/30/2024 for the same. At that time patient did have CT scan that showed significant distal gastric wall thickening represented most likely Crohn's disease, but no acute intra-abdominal abnormalities. Patient did have repeat lab work, urinalysis, CT scan here in the emergency department. He also received morphine, Solu-Medrol and Zofran with improvement of his symptoms. Patient with hypokalemia of 2.5, this is actually improved from 08/30/2024 at 2.3. Patient did receive IV potassium as well as magnesium here for repletion. 2309: Had discussion with general surgery Dr. Munoz, states no urgent emergent recommendation on his and, is recommending to reach out to GI. 2353: Had discussion with Dr. Rodriguez (hospitalist) at [facility], accepts the admission. 09.12.24 @ 0209: Transport here at bedside, she re-evaluated vital signs stable patient is safe for transfer to [facility] for admission Critical Care Time Critical Care Time Critical Care Time: Yes Total Critical Care Time: 35 Attestation: Authorized and Performed by: Medhat Cantu DO Total critical care time: Approximately [35] minutes Due to a high probability of clinically significant, life threatening deterioration, the patient required my highest level of preparedness to intervene emergently and I personally spent this critical care time directly and personally managing the patient. This critical care time included obtaining a history; examining the patient; pulse oximetry; ordering and review of studies; arranging urgent treatment with development of a management plan; evaluation of patient's response to treatment; frequent reassessment; and, discussions with other providers. This critical care time was performed to assess and manage the high probability of imminent, life-threatening deterioration that could result in multi-organ failure. It was exclusive of separately billable procedures and treating other patients and teaching time. Please see MDM section and the rest of the note for further information on patient assessment and treatment. Discharge Plan Departure Patient Disposition: [facility] Clinical Impression: Acute hypokalemia, Crohn's disease of perianal region with fistula, Colonic fistula, Exacerbation of Crohn's disease Referrals: Miscellaneous,DoctorMD [Primary Care Provider] -
[2024-09-11 22:11] VITALS: PULSE 137; O2SAT 97
[2024-09-11 22:13] VITALS: BP 113/68; PULSE 123; PULSE 136; RESP 18; TEMP 37.6; O2SAT 97; O2SAT 98; BMI 15.8
--- NOTE | 2024-09-11 22:13 | DI.CT.S_ITS ---
PROCEDURE: CT ABDOMEN PELVIS W CON INDICATIONS: worsening abd pain, hx of crohns TECHNIQUE: After the administration of intravenous contrast, axial sections acquired from the lung bases to the pubic symphysis. Coronal and sagittal reformats were performed. For radiation dose reduction, the following was used: automated exposure control, adjustment of mA and/or kV according to patient size. COMPARISON: [facility], CT, CT ABDOMEN PELVIS W CON, 08/30/2024, 21:57. FINDINGS: Image quality: Diagnostic. Lower Chest: No significant findings. ABDOMEN: Liver: No solid mass. Gallbladder: No radiopaque gallstones or wall thickening. Biliary ducts: Abnormal intrahepatic biliary dilation, with ductal irregularity. Pancreas: No ductal dilation. Spleen: Size is within normal limits. Adrenal Glands: No adrenal nodules. Kidneys and Ureters: No hydronephrosis. No solid mass. No complex renal cystic lesion which requires follow up. Stomach and Bowel: There is a long segment severe bowel wall thickening of the terminal ileum, extending into the transverse colon and splenic flexure. Bowel wall thickness measures up to 1.4 cm. There is wall ulceration present. Penetrating disease associated with the transverse colon, with early fistula formation with the gastric antrum (series 3, image 24). Additionally, there is a short segment of inflammation of the duodenum. Perianal fistula extending from the lower rectum into the left ischioanal fossa (series 2, image 151). Peritoneum: No abnormal intraperitoneal fluid. No free air. Ventral Wall: No significant ventral hernia. Abdominal Nodes: No retroperitoneal or mesenteric adenopathy by size criteria. Vessels: Aorta and inferior vena cava are normal in size. PELVIS: Pelvic Organs: Unremarkable. Bladder: No bladder wall thickening, accounting for underdistention. Pelvic Nodes: No enlarged lymph nodes. Miscellaneous: No inguinal hernias are seen. Bones: No aggressive osseous abnormality. IMPRESSION: Acute exacerbation of Crohn's disease, with a long segment of severe bowel wall thickening (measuring up to 1.4 cm), extending from the terminal ileum to the splenic flexure. There is wall ulceration. Additionally, there is penetrating disease of the superior transverse colon, with early fistulization to the gastric antrum. GI consultation is recommended4. Perianal fistula extending from the low rectum into the left ischioanal fossa. Abnormal intrahepatic biliary dilation, raising the concern for PSC. Recommend outpatient MRCP. Dictated by: Paul Mcdonald M.D. on 09/11/2024 at 22:54 Approved by: Paul Mcdonald M.D. on 09/11/2024 at 22:59
[2024-09-11] MEDS: ONDANSETRON 4 MG/2 ML INJ IV (22:21)
[2024-09-11] MEDS: SODIUM CHLORIDE 0.9% 1,000 ML 1000 ML IV (22:21)
[2024-09-11] MEDS: methylPREDNISolone 125 MG/2 ML VIAL IV (22:21)
[2024-09-11] MEDS: MORPHINE 4 MG/ML INJ IV (22:22)
--- NOTE | 2024-09-11 22:28 | PC.NURSE ---
Ambulatory to imaging with refrigeration technician
[2024-09-11 22:35] VITALS: PULSE 109; RESP 16; O2SAT 92
[2024-09-11 22:36] LABS: Add Manual Diff / Slide Review NO; Basophils Absolute Auto 0 /uL (0-100); Basophils Percent Auto 0.2 % (0-2); Eosinophils Absolute Auto 0 /uL (0-450); Eosinophils Percent Auto 0.3 % (2-4); Hematocrit 26.4 % (41-53); Hemoglobin 8.8 g/dL (13.5-17.5); Lymphocytes Absolute Auto 900 /uL (1100-4500); Lymphocytes Percent Auto 15.9 % (25-40); Mean Corpuscular HGB Conc 33.4 % (30-36); Mean Corpuscular Hemoglobin 24.6 PG (26-34); Mean Corpuscular Volume 73.6 fL (80-100); Monocytes Absolute Auto 500 /uL (0-900); Monocytes Percent Auto 8.7 % (3-14); Neutrophils Absolute Auto 4400 /uL (1500-7000); Neutrophils Percent Auto 74.9 % (50-75); Platelet Count 493 X10^3/uL (150-400); Red Blood Cell Count 3.59 X10^6/uL (4.5-5.9); Red Cell Distribution Width 22.3 % (11.6-14.8); White Blood Cell Count 5.9 X10^3/uL (4.5-11.0)
[2024-09-11 22:38] VITALS: BP 103/69; PULSE 101; RESP 17; O2SAT 94
[2024-09-11 22:42] LABS: Alanine Aminotransferase 17 IU/L (<50); Albumin 2.1 g/dL (3.5-5.0); Albumin Globulin Ratio 0.6 (1.0-2.8); Alkaline Phosphatase 131 U/L (38-126); Aspartate Aminotransferase 30 IU/L (17-59); BUN Creatinine Ratio 15.2 (6-22); Bilirubin Total 0.7 mg/dL (0.2-1.3); Blood Urea Nitrogen 12 mg/dL (9-20); Calcium 7.4 mg/dL (8.4-10.2); Carbon Dioxide 34 mmol/L (22-32); Chloride 87 mmol/L (98-107); Estimated Glomerular Filt Rate > 60 mL/min (>60); Globulin 3.6 g/dL (1.7-4.1); Glucose 97 mg/dL (70-99); HEMOLYSIS < 15 (0-50); Lipase 23 U/L (23-300); Magnesium 1.8 mg/dL (1.6-2.3); Sodium 125 mmol/L (137-145); Total Protein 5.7 g/dL (6.3-8.2)
[2024-09-11 22:44] LABS: Potassium 2.5 mmol/L (3.4-5.1)
[2024-09-11] MEDS: MAGNESIUM SULFATE 2 GM/50 ML PIGGYBACK IV (22:49)
--- NOTE | 2024-09-11 22:50 | EKG_ITS ---
[place] [address] [place] [id number] Test Date: 2024-09-11 Pat Name: Josemanuel Levine Department: [facility] Room: Gender: Male [employer] Operator: : 1985 Requested By: Order Number: [id number] Reading MD: Medhat Willis Measurements Intervals [place] Rate: 92 P: 82 CA: 130 QRS: 69 QRSD: 96 T: 60 QT: 376 QTc: 464 Interpretive Statements Normal sinus rhythm Nonspecific ST abnormality Electronically Signed On 09-14-2024 16:22:45 PDT by Medhat Willis
[2024-09-11 22:51] LABS: Anisocytosis 2+; Hypochromasia 1+; Microcytosis 1+
[2024-09-11 23:00] VITALS: BP 101/66; PULSE 91; RESP 19; O2SAT 94
[2024-09-11] MEDS: POTASSIUM CHLORIDE IN WATER 10 MEQ/100 ML PIGGYBACK 100 MEQ IV (23:10)
[2024-09-11 23:30] VITALS: BP 96/68; PULSE 93; RESP 19; O2SAT 95
[2024-09-12] VITALS: BP 103/72; PULSE 94; RESP 14; O2SAT 94
[2024-09-12] MEDS: POTASSIUM CHLORIDE IN WATER 10 MEQ/100 ML PIGGYBACK 100 MEQ IV (00:10)
[2024-09-12 00:13] VITALS: BP 99/68; PULSE 95; RESP 20; O2SAT 96
[2024-09-12 00:30] VITALS: BP 102/68; PULSE 84; RESP 13; O2SAT 95
[2024-09-12 01:00] VITALS: BP 96/72; PULSE 90; RESP 12; O2SAT 97
[2024-09-12 01:30] VITALS: BP 100/69; PULSE 76; RESP 12; O2SAT 93
[2024-09-12 02:00] VITALS: BP 100/66; PULSE 76; RESP 14; O2SAT 94
[2024-09-12] MEDS: ONDANSETRON 4 MG/2 ML INJ IV (02:16)
[2024-09-12] MEDS: MORPHINE 4 MG/ML INJ IV (02:16)
== END 2024-09-12 02:27 | disposition short-term general hospital (02) ==
PROVIDERS: Emergency Provider Student in an Organized Health Care Education/Training Program
DX: K50.113 Crohn's disease of large intestine with fistula (principal); E87.6 Hypokalemia; R11.2 Nausea with vomiting, unspecified
CPT/HCPCS: 36415; 74177; 80053; 81003; 83690; 83735; 85025; 93005; 96365; 96366; 96367; 96375; 96376; 99284; 99291; J2270; J2405; J2919; J3475; Q9967